=== PATIENT | male | born 1960 | race Hispanic/Latino ===

== ENCOUNTER 2024-12-12 07:14 | Inpatient (IN) | payer OTHER ==
[2024-12-12] MEDS ORDERED: Lorazepam 2 MG/ML VIAL ONE (07:26)
[2024-12-12 07:49] LABS: #Basophils 0.03 10x3/uL (0.0-0.2); %Basophils 0.5 % (0.0-1.0); %Eosinophils 3.3 % (0.0-10.0); Hemoglobin 14.1 g/dL (14.0-18.0); Mean Corpuscular Volume 82.4 fL (78.0-98.0); RBC Distribution Width 16.2 % (11.5-14.5)
[2024-12-12 08:01] LABS: Lipase 45 U/L (8-78); Magnesium 1.8 mg/dL (1.6-2.6)
[2024-12-12 08:02] LABS: Acetaminophen Less than 10 mcg/mL (Less than 10); Alcohol Less than 10.0 mg/dL (Less than 10); Salicylate Less than 8.0 mg/dL (Less than 8.0)
[2024-12-12 08:03] LABS: ALT (SGPT) 23 U/L (8-55); AST (SGOT) 28 U/L (5-34); Alkaline Phosphatase 86 U/L (40-110); Anion Gap 17 mmol/L (10-20); BUN (Urea Nitrogen) 8 mg/dL (8.4-25.7); Bilirubin, Total 1.1 mg/dL (0.2-1.2); CK (CPK) 79 U/L (30-200); Calc. Creatinine Clearance 0 mL/min (70-130); Calcium 9.3 mg/dL (7.8-10.44); Carbon Dioxide 23 mmol/L (23-31); Chloride 101 mmol/L (98-107); Estimated GFR 95; Globulin 3.7 g/dL (2.4-3.5); Glucose 101 mg/dL (80-115); Potassium 2.9 mmol/L (3.5-5.1); Protein, Total 7.7 g/dL (5.8-8.1); Sodium 138 mmol/L (136-145)
[2024-12-12 08:18] LABS: %Lymphocytes 24.9 % (21.0-51.0); %Monocytes 11.7 % (0.0-10.0); %Neutrophils 59.3 % (42.0-75.0); Hematocrit 41.3 % (42.0-52.0); Mean Corpuscular HGB CONC 34.1 g/dL (32.0-36.0); Mean Corpuscular Hemoglobin 28.1 pg (27.0-31.0); Platelet Count 174 10x3/uL (130-400); Red Blood Cell (RBC) Count 5.01 mill/uL (4.70-6.10)
[2024-12-12 09:29] LABS: Troponin I 0.051 ng/mL (< 0.028)
[2024-12-12 10:08] LABS: Amphetamine Not Detected (NotDetected); Barbiturates Screen Not Detected (NotDetected); Benzodiazepine Screen Detected (NotDetected); Cocaine Metabolite Screen Not Detected (NotDetected); Methadone Not Detected (NotDetected); Methamphetamine Not Detected (NotDetected); Opiate Screen Not Detected (NotDetected); Oxycodone Screen Not Detected (NotDetected); Phencyclidine (PCP) Not Detected (NotDetected); THC/Cannabinoid Screen Detected (NotDetected); Tricyclic Screen Not Detected (NotDetected)
[2024-12-12] MEDS ORDERED: Potassium Chloride 20 MEQ TAB ONE (10:40)
[2024-12-12] MEDS ORDERED: Aspirin Chewable 81 MG TAB ONE (10:40)
[2024-12-12] MEDS ORDERED: Acetaminophen 325 MG TAB PO PRN (11:19)
[2024-12-12] MEDS ORDERED: Senokot S 8.6-50 MG TAB PO PRN (11:19)
[2024-12-12] MEDS ORDERED: Lorazepam 2 MG/ML VIAL IM PRN (11:19)
[2024-12-12] MEDS ORDERED: Calcium Carbonate 500 MG ChewTAB PO PRN (11:19)
[2024-12-12 12:10] LABS: Troponin I 0.066 ng/mL (< 0.028)
[2024-12-12] MEDS: Ondansetron PF 4 MG/2 ML Vial IVP PRN (13:12)
[2024-12-12] MEDS: Thiamine HCl 200 MG/2 ML VIAL SLOW IVP SCH (13:12)
[2024-12-12] MEDS: Magnesium 2 GM/50 ML(in water) 2 GM in Premix 1 BAG IVPB SCH (13:13)
[2024-12-12 13:18] VITALS: BMI 30.6
[2024-12-12] MEDS: Lorazepam 1 MG TAB PO PRN (13:26)
[2024-12-12] MEDS: chlordiazePOXIDE HCl 5 MG CAP PO SCH (14:48)
[2024-12-12 15:03] LABS: Troponin I 0.052 ng/mL (< 0.028)
[2024-12-12] MEDS: Gabapentin 400 MG CAP PO SCH (20:40)
[2024-12-12] MEDS: QUEtiapine 100 MG TAB PO SCH (20:40)
[2024-12-12] MEDS: Amlodipine 5 MG TAB PO SCH (20:40)
[2024-12-12] MEDS: Prazosin HCl 1 MG CAP PO SCH (20:40)
[2024-12-12] MEDS: Famotidine/PF 20 mg/2ml Vial SLOW IVP SCH (20:41)
[2024-12-12] MEDS: Potassium Chloride 20 MEQ TAB PO SCH (20:41)
[2024-12-12] MEDS ORDERED: Non-Formulary Item 1 EACH (Prazosin Hcl [Prazosin Hcl] 2 MG Capsule) PO SCH (21:00)
[2024-12-13 04:40] LABS: ALT (SGPT) 22 U/L (8-55); AST (SGOT) 30 U/L (5-34); Albumin 3.6 g/dL (3.4-4.8); Alkaline Phosphatase 70 U/L (40-110); Anion Gap 10 mmol/L (10-20); BUN (Urea Nitrogen) 6 mg/dL (8.4-25.7); Bilirubin, Direct 0.3 mg/dL (0.1-0.3); Bilirubin, Total 0.8 mg/dL (0.2-1.2); Calc. Creatinine Clearance 118 mL/min (70-130); Calcium 8.7 mg/dL (7.8-10.44); Carbon Dioxide 26 mmol/L (23-31); Chloride 106 mmol/L (98-107); Estimated GFR 97; Globulin 3.4 g/dL (2.4-3.5); Glucose 95 mg/dL (80-115); Magnesium 2.3 mg/dL (1.6-2.6); Phosphorus 3.4 mg/dL (2.3-4.7); Potassium 3.3 mmol/L (3.5-5.1); Sodium 139 mmol/L (136-145)
[2024-12-13 04:45] LABS: #Basophils 0.03 10x3/uL (0.0-0.2); %Basophils 0.6 % (0.0-1.0); %Eosinophils 3.4 % (0.0-10.0); %Monocytes 12.8 % (0.0-10.0); %Neutrophils 46.4 % (42.0-75.0); Hematocrit 38.9 % (42.0-52.0); Hemoglobin 13.4 g/dL (14.0-18.0); Mean Corpuscular HGB CONC 34.4 g/dL (32.0-36.0); Mean Corpuscular Hemoglobin 28.8 pg (27.0-31.0); Mean Corpuscular Volume 83.7 fL (78.0-98.0); Mean Platelet Volume 10.4 fL (7.4-10.4); Platelet Count 136 10x3/uL (130-400); RBC Distribution Width 16.6 % (11.5-14.5); Red Blood Cell (RBC) Count 4.65 mill/uL (4.70-6.10)
[2024-12-13] MEDS: Folic Acid 1 MG TAB PO SCH (08:47)
[2024-12-13] MEDS: Multivit, Therapeutic 1 TAB PO SCH (08:48)
[2024-12-13] MEDS: Sertraline 25 MG TAB PO SCH (08:48)
[2024-12-13] MEDS: Enoxaparin 40 MG (0.4 mL) SYRINGE SC SCH (08:48)
[2024-12-13] MEDS: Potassium Chloride 20 MEQ TAB PO SCH (09:50)
[2024-12-13] MEDS ORDERED: Lorazepam 1 MG TAB PO PRN (11:19)
[2024-12-13] MEDS: Magnesium 2 GM/50 ML(in water) 2 GM in Premix 1 BAG IVPB SCH (11:21)
[2024-12-14 05:20] LABS: Anion Gap 12 mmol/L (10-20); BUN (Urea Nitrogen) 7 mg/dL (8.4-25.7); Calc. Creatinine Clearance 108 mL/min (70-130); Calcium 8.4 mg/dL (7.8-10.44); Carbon Dioxide 23 mmol/L (23-31); Chloride 106 mmol/L (98-107); Estimated GFR 94; Glucose 91 mg/dL (80-115); Potassium 3.5 mmol/L (3.5-5.1); Sodium 137 mmol/L (136-145)
[2024-12-14 05:30] LABS: #Basophils 0.04 10x3/uL (0.0-0.2); %Basophils 0.8 % (0.0-1.0); %Eosinophils 3.9 % (0.0-10.0); %Lymphocytes 37.8 % (21.0-51.0); %Monocytes 15.4 % (0.0-10.0); %Neutrophils 41.9 % (42.0-75.0); Hemoglobin 13.1 g/dL (14.0-18.0); Mean Corpuscular HGB CONC 33.6 g/dL (32.0-36.0); Mean Corpuscular Hemoglobin 28.8 pg (27.0-31.0); Mean Corpuscular Volume 85.7 fL (78.0-98.0); Mean Platelet Volume 10.1 fL (7.4-10.4); Platelet Count 134 10x3/uL (130-400); RBC Distribution Width 17.1 % (11.5-14.5); Red Blood Cell (RBC) Count 4.55 mill/uL (4.70-6.10)
[2024-12-14] MEDS: chlordiazePOXIDE HCl 5 MG CAP PO SCH (09:09)
[2024-12-14] MEDS: Potassium Chloride 20 MEQ TAB PO SCH (09:09)
[2024-12-14] MEDS: Lorazepam 1 MG TAB PO PRN (16:16)
[2024-12-15 04:38] LABS: #Basophils 0.05 10x3/uL (0.0-0.2); %Basophils 0.9 % (0.0-1.0); %Eosinophils 4.5 % (0.0-10.0); %Lymphocytes 38.8 % (21.0-51.0); %Monocytes 15.7 % (0.0-10.0); %Neutrophils 39.5 % (42.0-75.0); Hematocrit 38.8 % (42.0-52.0); Hemoglobin 12.9 g/dL (14.0-18.0); Mean Corpuscular HGB CONC 33.2 g/dL (32.0-36.0); Mean Corpuscular Hemoglobin 28.7 pg (27.0-31.0); Mean Corpuscular Volume 86.4 fL (78.0-98.0); Platelet Count 128 10x3/uL (130-400); RBC Distribution Width 17.3 % (11.5-14.5); Red Blood Cell (RBC) Count 4.49 mill/uL (4.70-6.10)
[2024-12-15 04:46] LABS: Anion Gap 10 mmol/L (10-20); BUN (Urea Nitrogen) 7 mg/dL (8.4-25.7); Calc. Creatinine Clearance 98 mL/min (70-130); Calcium 8.7 mg/dL (7.8-10.44); Carbon Dioxide 25 mmol/L (23-31); Chloride 107 mmol/L (98-107); Estimated GFR 84; Glucose 102 mg/dL (80-115); Potassium 3.6 mmol/L (3.5-5.1); Sodium 138 mmol/L (136-145)
[2024-12-15] MEDS: Thiamine 100 MG TAB PO SCH (09:50)
[2024-12-15] MEDS ORDERED: Lorazepam 0.5 MG TAB PO PRN (11:19)
[2024-12-15 12:25] VITALS: BP 131/80; TEMP 98.1
== END 2024-12-15 17:15 | disposition home or self-care (01) | DRG 896 ==
LOC: SUATTDRO 07:14 → ERS 07:14 → ERHOLD 11:19 → PCU 12:25
PROVIDERS: ADMIT Internal Medicine; ATTEND Internal Medicine
DX: F10.139 Alcohol abuse with withdrawal, unspecified (principal); I21.A1 Myocardial infarction type 2; F41.1 Generalized anxiety disorder; G47.00 Insomnia, unspecified; F12.10 Cannabis abuse, uncomplicated; E87.6 Hypokalemia; I10 Essential (primary) hypertension; F32.A Depression, unspecified; Z96.653 Presence of artificial knee joint, bilateral
CPT/HCPCS: 36415; 70450; 71045; 80048; 80053; 80306; 80307; 82248; 82550; 83690; 83735; 84100; 84484; 85025; 93005; 94760; 96374; J1650; J2060; J2405; J3411; J3475; J3490